=== PATIENT | male | born 1950 | race Caucasian/White ===

== ENCOUNTER → 2023-08-23 | Emergency (ER) | payer OTHER ==
--- NOTE | 2023-08-23 14:05 | ER ---
Nurse's Notes [facility] Name: Paolo Ayon Jr Age: 73 yrs Sex: Male : 1950 Arrival Date: 08/23/2023 Time: 11:41 Bed 15 Private MD: Diagnosis: Encounter for general medical examination;Abnormal results of function studies of other organs and systems Presentation: 08/23 12:49 Chief complaint: Patient states: Had labs drawn via [place] [facility], was told that PT-INR was ph abnormal and instructed to come to ED, pt does not take blood thinners. Coronavirus screen: Vaccine status: Patient reports receiving the 2nd dose of the covid vaccine. Ebola Screen: No symptoms or risks identified at this time. Initial Sepsis Screen: Does the patient meet any 2 criteria? No. Patient's initial sepsis screen is negative. Does the patient have a suspected source of infection? No. Patient's initial sepsis screen is negative. Risk Assessment: Do you want to hurt yourself or someone else? Patient reports no desire to harm self or others. Onset of symptoms was August 23, 2023. 12:49 Method Of Arrival: Ambulatory ph 12:49 Acuity: ADELINA 3 ph 14:18 Chief complaint:. kd3 Historical: - Allergies: 12:51 No Known Allergies; ph - Home Meds: 12:51 Methadone Oral [Active]; finasteride oral [Active]; Aspirin Oral [Active]; ph - PMHx: 12:51 COPD; chronis anemia; ph 12:53 Hepatitis (resolved); ph - PSHx: 12:53 Cholecystectomy; ph - Immunization history:: Adult Immunizations unknown. - Social history:: Smoking status: Patient/guardian denies using tobacco, but has a distant history of tobacco abuse. - Family history:: not pertinent. - Hospitalizations: : No recent hospitalization is reported. Assessment: 13:50 General: General: PT's came out of the room requesting to speak to the nurse. This kd3 RN responded and introduced myself as the patient's nurse. Pt stated "he has been here for 4 hours and he just needs his blood drawn and no one has done it". This RN explained that there was a patient that was critical and that I would be in his room to draw his blood next. Pt's stated "we are leaving. We do not deserve to be treated this way." pt and his exited the ED. Pt was independently ambulatory, skin is warm and dry, respirations are even and unlabored. . Vital Signs: 12:49 BP 122 / 68; Pulse 68; Resp 18; Temp 97.5; Pulse Ox 95% on R/A; Weight 64.41 kg; Height ph 5 ft. 10 in. ; 12:49 Body Mass Index 20.37 (64.41 kg, 177.8 cm) ph ED Course: 11:46 Patient arrived in ED. mg5 11:51 Dami Lyon MD is Attending Physician. rn 12:50 Triage completed. ph 12:54 Arm band placed on Patient placed in an exam room. ph 13:39 Farida Whitney, RN is Primary Nurse. kd3 Administered Medications: No medications were administered Outcome: 14:05 Discharge ordered by . rn 14:23 Patient left the ED. kd3 Signatures: Dami Lyon MD MD rn Hall, Patricia, RN RN Farida Whitney RN RN [id number] Anayeli Elder mg5
--- NOTE | 2023-08-23 14:05 | EDPHYS ---
Physician Documentation [facility] Name: Paolo Ayon Jr Age: 73 yrs Sex: Male : 1950 Arrival Date: 08/23/2023 Time: 11:41 Bed 15 Private MD: ED Physician Dami Lyon HPI: 08/23 12:23 This 73 yrs old Male presents to ER via Unassigned with complaints of Abnormal garnetter Results. 12:23 Patient sent to the ER for elevated PT/INR. Patient with history of hepatitis in the rn past but sees a log turner and told that his liver function tests have been normal. Does not take any anticoagulants. No bleeding. Patient otherwise feels fine and would not have come to the ER otherwise.. Historical: - Allergies: 12:51 No Known Allergies; ph - Home Meds: 12:51 Methadone Oral [Active]; finasteride oral [Active]; Aspirin Oral [Active]; ph - PMHx: 12:51 COPD; chronis anemia; ph 12:53 Hepatitis (resolved); ph - PSHx: 12:53 Cholecystectomy; ph - Immunization history:: Adult Immunizations unknown. - Social history:: Smoking status: Patient/guardian denies using tobacco, but has a distant history of tobacco abuse. - Family history:: not pertinent. - Hospitalizations: : No recent hospitalization is reported. ROS: 12:23 Constitutional: Negative for fever, chills, and weight loss, Neck: Negative for injury, rn pain, and swelling, Cardiovascular: Negative for chest pain, palpitations, and edema, Respiratory: Negative for shortness of breath, cough, wheezing, and pleuritic chest pain, Abdomen/GI: Negative for abdominal pain, nausea, vomiting, diarrhea, and constipation, Back: Negative for injury and pain, MS/Extremity: Negative for injury and deformity, Skin: Negative for injury, rash, and discoloration, Neuro: Negative for headache, weakness, numbness, tingling, and seizure, Exam: 12:23 Constitutional: This is a well developed, well nourished patient who is awake, alert, rn and in no acute distress. Cardiovascular: Regular rate and rhythm. No pulse deficits. Neuro: Awake and alert, GCS 15 Vital Signs: 12:49 BP 122 / 68; Pulse 68; Resp 18; Temp 97.5; Pulse Ox 95% on R/A; Weight 64.41 kg; Height ph 5 ft. 10 in. ; 12:49 Body Mass Index 20.37 (64.41 kg, 177.8 cm) ph MDM: 11:51 Patient medically screened. rn 14:02 Differential Diagnosis. Data reviewed: vital signs, nurses notes. ED course: Patient rn was fine upon my initial evaluation and was notified that there was going to be a wait until a bed opens up. When brought back by nursing staff patient was upset, yelled at nurse and left the emergency department.. 14:05 ED course: Unclear why lab results showed elevated INR when patient does not have a rn history of cirrhosis/liver failure as well as does not take anticoagulants. Patient denies any bleeding. Patient is grossly asymptomatic.. 08/23 12:06 Order name: IV Start rn Administered Medications: No medications were administered Disposition Summary: 08/23/23 14:05 Discharge Ordered Notes: Location: Home rn Problem: new rn Symptoms: are unchanged rn Condition: Stable rn Diagnosis - Encounter for general medical examination rn - Abnormal results of function studies of other organs and systems rn Followup: rn - With: Private Physician - When: Upon discharge from the Emergency Department - Reason: Recheck today's complaints, Re-evaluation by your physician Forms: - Medication Reconciliation Form rn - Thank You Letter rn - Antibiotic photo journalist - Prescription Opioid Use rn - Patient Portal Instructions rn - Leadership Thank You Letter rn Signatures: Dispatcher [employer] Dami Plascencia MD MD rn Hall, Patricia, RN RN ph
[2023-08-23 17:15] VITALS: BP 122/68; TEMP 97.5; O2SAT 95
== END ==
LOC: ER 11:41
DX: R94.8 Abnormal results of function studies of other organs and systems (principal)
CPT/HCPCS: 99281